=== PATIENT | female | born 1965 | race African-American/Black ===

== ENCOUNTER 2017-06-19 18:43 | Emergency (ER) | payer MEDICAID, OTHER ==
[~2017-06-19] VITALS: Ht 162.6 cm; Wt 92.0 kg
[2017-06-19] MEDS ORDERED: KETOROLAC 60MG/2ML VIAL IM STA (22:36)
[2017-06-19] MEDS ORDERED: METOCLOPRAMIDE HCL 10MG/2ML VIAL IV ONE (23:45)
[2017-06-19] MEDS ORDERED: DIPHENHYDRAMINE 50MG/ML VIAL IV ONE (23:45)
[2017-06-20 00:03] LABS: BASOPHILS % 0.5 % (0.0-2.0); EOSINOPHILS % 0.4 % (0.0-5.0); HEMOGLOBIN. 13.7 g/dL (12.0-16.0); MEAN CORPUSCULAR HEMOGLOBIN 23.7 pg (28.0-32.0); MEAN CORPUSCULAR VOLUME 72.7 fL (81.0-99.0); MEAN PLATELET VOLUME 9.8 fl (7.4-10.4); MONOCYTES % 10.7 % (2.0-8.0); NEUTROPHILS % 60.4 % (40.0-76.0); PLATELET 212 x1000/uL (130-400); RED BLOOD CELL COUNT 5.77 mill/uL (4.2-5.4); RED CELL DISTRIBUTION WIDTH 17.3 % (11.6-14.6)
[2017-06-20] MEDS ORDERED: SODIUM CHLORIDE 0.9% 1,000 ML IV ONE (00:16)
[2017-06-20 00:36] LABS: CHLORIDE 100 mEq/L (98-107)
[2017-06-20 00:51] LABS: CARBON DIOXIDE 29 mEq/L (21-32)
[2017-06-20] MEDS ORDERED: TRAMADOL 50MG TABLET PO ONE (01:00)
[2017-06-20 01:13] LABS: CLARITY URINE CLEAR (CLEAR); COLOR URINE YELLOW (YELLOW); KETONES URINE TRACE (NEGATIVE); LEUKOCYTE ESTERASE URINE NEGATIVE (NEGATIVE); NITRITE URINE NEGATIVE (NEGATIVE); OCCULT BLOOD URINE 2+ (NEGATIVE); PROTEIN URINE 2+ (NEGATIVE); SPECIFIC GRAVITY URINE 1.023 (1.005-1.030)
[2017-06-20 01:54] VITALS: BP 121/80
== END 2017-06-20 02:44 | disposition home or self-care (01) ==
LOC: ER 18:46
DX: R51 Headache (principal); Z90.710 Acquired absence of both cervix and uterus
CPT/HCPCS: 36415; 70450; 80053; 81001; 85025; 96361; 96372; 96374; 96375; 99285; J1200; J1885; J2765; J7030; Z7610

== ENCOUNTER 2017-07-29 23:32 | Inpatient (IN) | payer MEDICAID ==
[~2017-07-29] VITALS: Ht 165.1 cm; Wt 71.2 kg
[2017-07-30] VITALS: BP 123/81
[2017-07-30] MEDS ORDERED: SODIUM CHLORIDE 0.9% 1,000 ML IV ONE ×2 (00:09→02:20)
[2017-07-30] MEDS ORDERED: LORAZEPAM 2MG/ML CPJ IV ONE (00:15)
[2017-07-30] MEDS ORDERED: LEVETIRACETAM 500MG PREMIX 100 ML IV SCH (00:15)
[2017-07-30 01:20] LABS: BASOPHILS % 0.5 % (0.0-2.0); EOSINOPHILS % 0.5 % (0.0-5.0); HEMATOCRIT. 32.2 % (36.0-48.0); HEMOGLOBIN. 10.2 g/dL (12.0-16.0); LYMPHOCYTES % 13.4 % (20.0-50.0); MEAN CORPUSCULAR HEMOGLOBIN 24.5 pg (28.0-32.0); MEAN CORPUSCULAR VOLUME 77.1 fL (81.0-99.0); MEAN PLATELET VOLUME 9.2 fl (7.4-10.4); MONOCYTES % 6.7 % (2.0-8.0); NEUTROPHILS % 78.9 % (40.0-76.0); PLATELET 389 x1000/uL (130-400); RED BLOOD CELL COUNT 4.17 mill/uL (4.2-5.4); RED CELL DISTRIBUTION WIDTH 20.2 % (11.6-14.6)
[2017-07-30 01:30] LABS: AMMONIA < 25 uMol/L (<32)
[2017-07-30 01:36] LABS: CHLORIDE 106 mEq/L (98-107); CREATINE KINASE 43 IU/L (26-192); ETHANOL BLOOD < 10 mg/dL; TROPONIN I < 0.02 ng/mL (0.00-0.04)
[2017-07-30 01:38] LABS: INR 1.3; PROTHROMBIN TIME 13.4 sec (9.4-11.6)
[2017-07-30 02:22] LABS: CARBAMAZEPINE < 0.5 ug/mL (4-12); PHENOBARBITAL < 2.1 ug/mL (15.0-40.0); VALPROIC ACID < 3.0 ug/mL (50-100)
[2017-07-30 02:48] LABS: CLARITY URINE CLOUDY (CLEAR); COLOR URINE YELLOW (YELLOW); KETONES URINE NEGATIVE (NEGATIVE); LEUKOCYTE ESTERASE URINE NEGATIVE (NEGATIVE); NITRITE URINE NEGATIVE (NEGATIVE); OCCULT BLOOD URINE 2+ (NEGATIVE); PROTEIN URINE 1+ (NEGATIVE); SPECIFIC GRAVITY URINE 1.017 (1.005-1.030); UROBILINOGEN URINE 0.2 E.U./dL (0.2-1.0)
[2017-07-30 03:03] LABS: *AMPHETAMINES SCREEN URINE NEGATIVE (NEGATIVE); *BARBITURATES SCREEN URINE NEGATIVE (NEGATIVE); *BENZODIAZEPINES SCREEN URINE PRESUMTIVE POSITIVE (NEGATIVE); *COCAINE SCREEN URINE NEGATIVE (NEGATIVE); CANNABINOID URINE SCREEN NEGATIVE (NEGATIVE); METHADONE URINE SCREEN NEGATIVE (NEGATIVE); OPIATES URINE SCREEN NEGATIVE (NEGATIVE); PHENCYCLIDINE URINE SCREEN NEGATIVE (NEGATIVE)
[2017-07-30] MEDS ORDERED: ACETAMINOPHEN 325MG TABLET PO SCH (05:13)
[2017-07-30] MEDS ORDERED: SODIUM CHLORIDE 0.9% 1000ML BAG (SEPSIS BOLUS) IV ONE ×2 (05:15→06:00)
[2017-07-30] MEDS ORDERED: VANCOMYCIN 1 G PREMIX 200 ML IV SCH (06:00)
[2017-07-30] MEDS ORDERED: CEFTRIAXONE 1 G PREMIX 50 ML IV SCH (06:00)
[2017-07-30] MEDS ORDERED: ACETAMINOPHEN 650MG/20.3ML UDC GT PRN (07:30)
[2017-07-30] MEDS ORDERED: MAGNESIUM/ALUMINUM HYDROXIDE/SIMETHICONE 30ML UDC PO PRN (07:30)
[2017-07-30] MEDS ORDERED: HYDROCODONE/ACETAMINOPHEN 5/325MG TABLET PO PRN (07:30)
[2017-07-30] MEDS ORDERED: ENOXAPARIN 40MG/0.4ML SYR SUBCUT SCH (07:30)
[2017-07-30] MEDS ORDERED: DIPHENHYDRAMINE 50MG/ML VIAL IV PRN (07:30)
[2017-07-30] MEDS ORDERED: CLONIDINE 0.1MG TABLET PO PRN (07:30)
[2017-07-30] MEDS ORDERED: DOCUSATE SODIUM 100MG CAPSULE PO PRN (07:30)
[2017-07-30] MEDS ORDERED: GUAIFENESIN 200MG/10ML SUGAR FREE UDC PO PRN (07:30)
[2017-07-30] MEDS ORDERED: ACETAMINOPHEN 325MG TABLET PO PRN (07:30)
[2017-07-30] MEDS ORDERED: IPRATROPIUM/ALBUTEROL 0.5-3(2.5)MG/3ML NEB INH PRN (07:30)
[2017-07-30] MEDS ORDERED: DEXTROSE 50% WATER 50ML SYRINGE IV PRN (07:30)
[2017-07-30] MEDS ORDERED: ACETAMINOPHEN 650MG SUPP PR PRN (07:30)
[2017-07-30] MEDS ORDERED: ONDANSETRON HCL 4MG/2ML VIAL IV PRN (07:30)
[2017-07-30] MEDS: BLOOD SUGAR DIAGNOSTIC STRIP TEST SCH ×4 (09:05→21:00)
[2017-07-30] MEDS: INSULIN LISPRO 100 UNITS/ML SUBCUT SCH ×4 (09:07→21:00)
[2017-07-30] MEDS ORDERED: ENOXAPARIN 30MG/0.3ML SYR SUBCUT SCH (11:00)
[2017-07-30] MEDS ORDERED: APIX5TAB PO (11:27)
[2017-07-30] MEDS: LEVETIRACETAM 500MG PREMIX 100 ML IV SCH ×2 (13:22→22:06)
[2017-07-30] MEDS: APIXABAN 5 MG TABLET PO SCH ×2 (13:23→22:15)
[2017-07-30] MEDS: SODIUM CHLORIDE 0.9% INJ 3ML FLUSH IVF SCH ×2 (14:15→22:00)
[2017-07-30] MEDS: LEVOFLOXACIN 500MG PREMIX 100 ML IV SCH ×2 (21:36→22:43)
[2017-07-30] MEDS ORDERED: NA PHOS,M-B/NA PHOS,DI-BA ENEMA 118ML PR PRN (23:00)
[2017-07-31 02:02] VITALS: BP 123/81
[2017-07-31 04:00] VITALS: BP 117/73
[2017-07-31] MEDS: SODIUM CHLORIDE 0.9% INJ 3ML FLUSH IVF SCH ×3 (05:53→22:10)
[2017-07-31 06:24] LABS: BASOPHILS % 0.5 % (0.0-2.0); EOSINOPHILS % 3.1 % (0.0-5.0); HEMATOCRIT. 29.6 % (36.0-48.0); HEMOGLOBIN. 9.7 g/dL (12.0-16.0); LYMPHOCYTES % 27.7 % (20.0-50.0); MEAN CORPUSCULAR VOLUME 76.4 fL (81.0-99.0); MEAN PLATELET VOLUME 9.1 fl (7.4-10.4); NEUTROPHILS % 61.7 % (40.0-76.0); PLATELET 354 x1000/uL (130-400); RED BLOOD CELL COUNT 3.88 mill/uL (4.2-5.4); RED CELL DISTRIBUTION WIDTH 20.5 % (11.6-14.6)
[2017-07-31] MEDS: BLOOD SUGAR DIAGNOSTIC STRIP TEST SCH ×4 (06:50→21:26)
[2017-07-31] MEDS: INSULIN LISPRO 100 UNITS/ML SUBCUT SCH ×4 (07:18→21:00)
[2017-07-31 08:00] VITALS: BP 133/87
[2017-07-31] MEDS: APIXABAN 5 MG TABLET PO SCH ×2 (08:40→22:10)
[2017-07-31] MEDS: LEVETIRACETAM 500MG PREMIX 100 ML IV SCH ×2 (10:52→23:39)
[2017-07-31] MEDS ORDERED: LURA40TA PO (11:24)
[2017-07-31] MEDS ORDERED: SIMV10TA2 PO (11:27)
[2017-07-31] MEDS ORDERED: SERT50TA PO (11:29)
[2017-07-31] MEDS: SERTRALINE HCL 50MG TABLET PO SCH (11:44)
[2017-07-31 12:00] VITALS: BP 130/76
[2017-07-31] MEDS ORDERED: CEFTRIAXONE 1,000 MG in DEXTROSE 5% WATER 50 ML IV SCH (13:00)
[2017-07-31 16:00] VITALS: BP 129/82
[2017-07-31] MEDS: LATUDA 60 MG PO SCH (17:16)
[2017-07-31 20:00] VITALS: BP 134/73
[2017-07-31] MEDS ORDERED: ATORVASTATIN CALCIUM 10MG TABLET PO SCH (21:00)
[2017-08-01] VITALS: BP 130/75
[2017-08-01 04:00] VITALS: BP 118/64
[2017-08-01] MEDS: BLOOD SUGAR DIAGNOSTIC STRIP TEST SCH ×3 (05:31→17:47)
[2017-08-01] MEDS: SODIUM CHLORIDE 0.9% INJ 3ML FLUSH IVF SCH (05:31)
[2017-08-01 08:00] VITALS: BP 131/77
[2017-08-01] MEDS: INSULIN LISPRO 100 UNITS/ML SUBCUT SCH ×3 (08:10→17:47)
[2017-08-01] MEDS: APIXABAN 5 MG TABLET PO SCH (09:08)
[2017-08-01] MEDS: SERTRALINE HCL 50MG TABLET PO SCH (09:08)
[2017-08-01] MEDS ORDERED: LEVETIRACETAM 500MG PREMIX 100 ML IV SCH (11:00)
[2017-08-01] MEDS ORDERED: KEPP500 PO (11:58)
[2017-08-01 12:00] VITALS: BP 136/88
[2017-08-01 16:00] VITALS: BP 123/75
[2017-08-01 16:27] VITALS: BP 136/88
[2017-08-01] MEDS: LATUDA 60 MG PO SCH (17:52)
== END 2017-08-01 18:10 | disposition home health service (06) | DRG 45 ==
LOC: ER 23:36 → 7WST 07-30 05:27 → EDBEDREQ 07-30 05:37 → EDBEDREQTM 07-30 05:37 → EDBEDREQSVC 07-30 08:51 → ENRESERV 07-30 22:29 → 7WST 07-31 06:08
PROVIDERS: ADMIT Family Medicine; ATTEND Family Medicine
DX: I63.9 Cerebral infarction, unspecified (principal); E44.0 Moderate protein-calorie malnutrition; R13.10 Dysphagia, unspecified; F25.9 Schizoaffective disorder, unspecified; G40.89 Other seizures; E11.9 Type 2 diabetes mellitus without complications; I10 Essential (primary) hypertension; E66.9 Obesity, unspecified; Z79.01 Long term (current) use of anticoagulants; Z86.61 Personal history of infections of the central nervous system; Z86.711 Personal history of pulmonary embolism; Z86.718 Personal history of other venous thrombosis and embolism; Z90.710 Acquired absence of both cervix and uterus; Z79.899 Other long term (current) drug therapy; Z88.8 Allergy status to other drugs, medicaments and biological substances; Z98.891 History of uterine scar from previous surgery; Z68.26 Body mass index [BMI] 26.0-26.9, adult
CPT/HCPCS: 36415; 70450; 70551; 71045; 80053; 80061; 80156; 80165; 80184; 80185; 80305; 81001; 81003; 82140; 82550; 82962; 83036; 83605; 83690; 83880; 84443; 84484; 85025; 85379; 85610; 87040; 93005; 93880; 93970; 96365; 97116; 97162; 99291; G0482; J0696; J1953; J1956; J2060; J3370; J7030; J7050; J7060

== ENCOUNTER 2017-08-02 04:13 | Emergency (ER) | payer MEDICAID ==
[~2017-08-02] VITALS: Ht 170.2 cm; Wt 89.0 kg
[~2017-08-02 04:13] MED LIST: APIX5TAB PO; KEPP500 PO; LURA40TA PO; SERT50TA PO; SIMV10TA2 PO
[2017-08-02 05:31] LABS: CLARITY URINE CLOUDY (CLEAR); COLOR URINE DARK YELLOW (YELLOW); KETONES URINE NEGATIVE (NEGATIVE); LEUKOCYTE ESTERASE URINE NEGATIVE (NEGATIVE); NITRITE URINE NEGATIVE (NEGATIVE); OCCULT BLOOD URINE 3+ (NEGATIVE); PROTEIN URINE 2+ (NEGATIVE); SPECIFIC GRAVITY URINE 1.021 (1.005-1.030); UROBILINOGEN URINE 0.2 E.U./dL (0.2-1.0)
[2017-08-02 05:56] LABS: *AMPHETAMINES SCREEN URINE NEGATIVE (NEGATIVE); *BARBITURATES SCREEN URINE NEGATIVE (NEGATIVE); *BENZODIAZEPINES SCREEN URINE NEGATIVE (NEGATIVE); *COCAINE SCREEN URINE NEGATIVE (NEGATIVE); CANNABINOID URINE SCREEN NEGATIVE (NEGATIVE); METHADONE URINE SCREEN NEGATIVE (NEGATIVE); OPIATES URINE SCREEN NEGATIVE (NEGATIVE); PHENCYCLIDINE URINE SCREEN NEGATIVE (NEGATIVE)
[2017-08-02 06:29] LABS: BASOPHILS % 0.6 % (0.0-2.0); EOSINOPHILS % 1.5 % (0.0-5.0); HEMATOCRIT. 35.3 % (36.0-48.0); HEMOGLOBIN. 11.2 g/dL (12.0-16.0); MEAN CORPUSCULAR HEMOGLOBIN 24.3 pg (28.0-32.0); MEAN CORPUSCULAR VOLUME 76.4 fL (81.0-99.0); MONOCYTES % 9.9 % (2.0-8.0); PLATELET 360 x1000/uL (130-400); RED BLOOD CELL COUNT 4.62 mill/uL (4.2-5.4); RED CELL DISTRIBUTION WIDTH 19.5 % (11.6-14.6)
[2017-08-02 06:37] LABS: CHLORIDE 106 mEq/L (98-107)
[2017-08-02] MEDS ORDERED: LORAZEPAM 2MG/ML CPJ IV ONE (06:45)
[2017-08-02] MEDS ORDERED: SODIUM CHLORIDE 0.9% 1,000 ML IV ONE (06:45)
[2017-08-02 06:46] LABS: CARBON DIOXIDE 25 mEq/L (21-32)
[2017-08-02] MEDS ORDERED: ONDANSETRON HCL 4MG/2ML VIAL IV NR (08:00)
[2017-08-02] MEDS ORDERED: TAMSULOSIN HCL 0.4MG SR CAPSULE PO NR (08:00)
[2017-08-02] MEDS ORDERED: KETOROLAC 30MG/ML VIAL IV ONE (08:00)
[2017-08-02] MEDS ORDERED: MORPHINE SULFATE 2 MG/ML CPJ (NOT FOR IM USE) IV ONE (08:00)
[2017-08-02] MEDS ORDERED: MORPHINE SULFATE 4 MG/ML CPJ (NOT FOR IM USE) IV ONE (08:13)
[2017-08-02] MEDS ORDERED: DIPHENHYDRAMINE 50MG/ML VIAL IV ONE (08:45)
[2017-08-02 14:45] VITALS: BP 125/70
== END 2017-08-02 14:50 | disposition home or self-care (01) ==
LOC: ER 04:13
DX: N23 Unspecified renal colic (principal); N20.2 Calculus of kidney with calculus of ureter; F31.9 Bipolar disorder, unspecified; E11.9 Type 2 diabetes mellitus without complications; Z90.710 Acquired absence of both cervix and uterus; Z98.890 Other specified postprocedural states; Z88.1 Allergy status to other antibiotic agents
CPT/HCPCS: 36415; 74176; 80053; 80305; 81001; 81025; 85025; 93005; 96361; 96374; 96375; 99285; J1200; J1885; J2060; J2270; J2405; J7030; Z7610

== ENCOUNTER 2020-03-01 22:14 | Inpatient (IN) | payer MEDICAID ==
[~2020-03-01] VITALS: Ht 170.2 cm; Wt 84.8 kg
[2020-03-01] MEDS ORDERED: ACETAMINOPHEN 325MG TABLET PO ONE (23:00)
[2020-03-01] MEDS ORDERED: SODIUM CHLORIDE 0.9% 500 ML IV ONE (23:07)
[2020-03-01] MEDS ORDERED: PIPERACILLIN/TAZ 3.375G PREMIX 50 ML IV NR (23:30)
[2020-03-01] MEDS ORDERED: PIPERACILLIN/TAZOBACTAM 3.375GM/50ML PREMIX IV ONE (23:30)
[2020-03-01 23:51] LABS: BASOPHILS % 0.5 % (0.0-2.0); EOSINOPHILS % 2.3 % (0.0-5.0); HEMATOCRIT. 36.5 % (36.0-48.0); LYMPHOCYTES % 41.6 % (20.0-50.0); MEAN CORPUSCULAR HEMOGLOBIN 26.2 pg (28.0-32.0); MEAN CORPUSCULAR VOLUME 79.4 fL (81.0-99.0); MEAN PLATELET VOLUME 9.5 fl (7.4-10.4); MONOCYTES % 8.5 % (2.0-8.0); NEUTROPHILS % 47.1 % (40.0-76.0); PLATELET 208 x1000/uL (130-400); RED CELL DISTRIBUTION WIDTH 13.7 % (11.6-14.6)
[2020-03-01 23:56] LABS: CHLORIDE 105 mEq/L (98-107); CLARITY URINE CLEAR (CLEAR); COLOR URINE YELLOW (YELLOW); KETONES URINE NEGATIVE (NEGATIVE); LEUKOCYTE ESTERASE URINE NEGATIVE (NEGATIVE); NITRITE URINE NEGATIVE (NEGATIVE); OCCULT BLOOD URINE 1+ (NEGATIVE); PROTEIN URINE NEGATIVE (NEGATIVE); SPECIFIC GRAVITY URINE 1.006 (1.005-1.030); UROBILINOGEN URINE 0.2 E.U./dL (0.2-1.0)
[2020-03-01 23:58] LABS: PARTIAL THROMBOPLASTIN TIME 26.8 sec (23.4-31.0); PROTHROMBIN TIME 10.8 sec (9.6-11.0)
[2020-03-02] MEDS ORDERED: ASPIRIN 81MG TABLET PO ONE (00:15)
[2020-03-02] MEDS ORDERED: MORPHINE SULFATE 4 MG/ML CPJ (NOT FOR IM USE) IV STA (00:21)
[2020-03-02] MEDS ORDERED: ONDANSETRON HCL 4MG/2ML INJ IV STA (00:21)
[2020-03-02] MEDS ORDERED: POTASSIUM CHLORIDE 20MEQ TABLET SR PO ONE (00:45)
[2020-03-02] MEDS ORDERED: ONDANSETRON HCL 4MG/2ML INJ IV PRN (09:15)
[2020-03-02 09:30] VITALS: BP 146/84
[2020-03-02] MEDS ORDERED: ACETAMINOPHEN 325MG TABLET PO PRN (09:30)
[2020-03-02 12:24] VITALS: BP_SYST 184
[2020-03-02] MEDS ORDERED: OMEG-119 MT (12:44)
[2020-03-02] MEDS ORDERED: DULO60CA44 MT (12:44)
[2020-03-02] MEDS ORDERED: ASPI-1497 MT (12:44)
[2020-03-02] MEDS ORDERED: HYDR25TA MT (12:44)
[2020-03-02] MEDS ORDERED: ATOR20TA MT (12:44)
[2020-03-02] MEDS ORDERED: BRIV50TA MT (12:44)
[2020-03-02] MEDS ORDERED: FAMO20TA8 MT (12:44)
[2020-03-02] MEDS ORDERED: ZOLP5TAB8 MT (12:44)
[2020-03-02] MEDS ORDERED: LURA120T MT (12:44)
[2020-03-02 14:00] VITALS: BP 146/89
[2020-03-02 14:02] VITALS: BP_SYST 130; BP_SYST 133; BP_DIAS 72; BP_DIAS 83
[2020-03-02] MEDS ORDERED: DEXTROSE 50% WATER 50ML SYRINGE IV PRN (16:00)
[2020-03-02] MEDS ORDERED: POTASSIUM CHLORIDE 20MEQ TABLET SR PO NR (16:30)
[2020-03-02] MEDS: ENOXAPARIN 40MG/0.4ML SYR SUBCUT SCH (17:19)
[2020-03-02] MEDS: BLOOD SUGAR DIAGNOSTIC STRIP TEST SCH ×2 (17:42→20:59)
[2020-03-02] MEDS: INSULIN LISPRO 100 UNITS/ML SUBCUT SCH ×2 (17:54→21:00)
[2020-03-02 20:00] VITALS: BP_SYST 125; BP_SYST 130; BP_SYST 145; BP_DIAS 78; BP_DIAS 86; BP_DIAS 93
[2020-03-02] MEDS: ATORVASTATIN CALCIUM 20MG TABLET PO SCH (20:58)
[2020-03-02] MEDS: FAMOTIDINE 20MG TABLET PO SCH (20:58)
[2020-03-02] MEDS: BRIVIACT 50 MG PO SCH (20:59)
[2020-03-02] MEDS: [UNRECOGNIZED DRUG - REMARK] PO SCH (20:59)
[2020-03-02] MEDS: ZOLPIDEM TARTRATE 5MG TABLET PO PRN (23:27)
[2020-03-03] VITALS: BP 133/82
[2020-03-03 04:00] VITALS: BP 139/79
[2020-03-03] MEDS: BLOOD SUGAR DIAGNOSTIC STRIP TEST SCH ×4 (05:33→20:10)
[2020-03-03] MEDS: INSULIN LISPRO 100 UNITS/ML SUBCUT SCH ×4 (06:38→20:10)
[2020-03-03 08:00] VITALS: BP 122/93
[2020-03-03] MEDS: AMLODIPINE 5MG TABLET PO SCH (08:40)
[2020-03-03] MEDS: BRIVIACT 50 MG PO SCH ×2 (08:40→20:30)
[2020-03-03] MEDS: ASPIRIN 81MG TABLET PO SCH (08:40)
[2020-03-03] MEDS: DULOXETINE HCL 60MG DR CAPSULE PO SCH (08:40)
[2020-03-03 12:00] VITALS: BP 139/70
[2020-03-03 16:00] VITALS: BP 150/93
[2020-03-03 16:17] LABS: BASOPHILS % 0.4 % (0.0-2.0); EOSINOPHILS % 1.7 % (0.0-5.0); HEMATOCRIT. 38.2 % (36.0-48.0); HEMOGLOBIN. 12.4 g/dL (12.0-16.0); LYMPHOCYTES % 38.3 % (20.0-50.0); MEAN CORPUSCULAR VOLUME 79.7 fL (81.0-99.0); MEAN PLATELET VOLUME 9.5 fl (7.4-10.4); MONOCYTES % 8.4 % (2.0-8.0); NEUTROPHILS % 51.2 % (40.0-76.0); PLATELET 208 x1000/uL (130-400); RED BLOOD CELL COUNT 4.79 mill/uL (4.2-5.4); RED CELL DISTRIBUTION WIDTH 13.5 % (11.6-14.6)
[2020-03-03 16:25] LABS: CHLORIDE 103 mEq/L (98-107)
[2020-03-03] MEDS: ENOXAPARIN 40MG/0.4ML SYR SUBCUT SCH (17:09)
[2020-03-03 20:00] VITALS: BP 130/75
[2020-03-03 20:11] LABS: *BARBITURATES SCREEN URINE NEGATIVE (NEGATIVE); *BENZODIAZEPINES SCREEN URINE NEGATIVE (NEGATIVE); *COCAINE SCREEN URINE NEGATIVE (NEGATIVE)
[2020-03-03 20:12] LABS: *AMPHETAMINES SCREEN URINE NEGATIVE (NEGATIVE); CANNABINOID URINE SCREEN NEGATIVE (NEGATIVE); METHADONE URINE SCREEN NEGATIVE (NEGATIVE); OPIATES URINE SCREEN NEGATIVE (NEGATIVE); PHENCYCLIDINE URINE SCREEN NEGATIVE (NEGATIVE)
[2020-03-03] MEDS: FAMOTIDINE 20MG TABLET PO SCH (20:30)
[2020-03-03] MEDS: [UNRECOGNIZED DRUG - REMARK] PO SCH (20:30)
[2020-03-03] MEDS: ATORVASTATIN CALCIUM 20MG TABLET PO SCH (20:30)
[2020-03-03] MEDS ORDERED: DOCUSATE SODIUM 250MG CAPSULE PO PRN (20:45)
[2020-03-03] MEDS: ZOLPIDEM TARTRATE 5MG TABLET PO PRN (20:46)
[2020-03-04] VITALS: BP 120/65
[2020-03-04 04:00] VITALS: BP_SYST 118; BP_SYST 120; BP_SYST 130; BP_DIAS 58; BP_DIAS 60; BP_DIAS 64
[2020-03-04] MEDS: BLOOD SUGAR DIAGNOSTIC STRIP TEST SCH ×2 (05:39→11:46)
[2020-03-04] MEDS: INSULIN LISPRO 100 UNITS/ML SUBCUT SCH ×2 (06:23→11:46)
[2020-03-04 08:00] VITALS: BP 125/80
[2020-03-04] MEDS: ASPIRIN 81MG TABLET PO SCH (08:25)
[2020-03-04] MEDS: DULOXETINE HCL 60MG DR CAPSULE PO SCH (08:25)
[2020-03-04] MEDS: BRIVIACT 50 MG PO SCH (08:26)
[2020-03-04] MEDS: AMLODIPINE 5MG TABLET PO SCH (08:26)
[2020-03-04 12:00] VITALS: BP 109/82
[2020-03-04 12:32] VITALS: BP 125/80
== END 2020-03-04 14:50 | disposition home or self-care (01) | DRG 48 ==
LOC: ER 22:14 → 7WST 03-02 01:00 → EDBEDREQ 03-02 01:02 → EDBEDREQDT 03-02 01:02 → EDBEDREQTM 03-02 01:02 → ENRESERV 03-02 09:16 → 7WST 03-02 10:06 → 5WST 03-02 22:48
PROVIDERS: ADMIT Internal Medicine; ATTEND Internal Medicine
DX: G90.8 Other disorders of autonomic nervous system (principal); E87.6 Hypokalemia; E11.9 Type 2 diabetes mellitus without complications; E44.1 Mild protein-calorie malnutrition; G40.909 Epilepsy, unspecified, not intractable, without status epilepticus; F31.9 Bipolar disorder, unspecified; F20.9 Schizophrenia, unspecified; I10 Essential (primary) hypertension; Z20.828 Contact with and (suspected) exposure to other viral communicable diseases; R26.89 Other abnormalities of gait and mobility; E78.5 Hyperlipidemia, unspecified; J98.11 Atelectasis; E78.00 Pure hypercholesterolemia, unspecified; Z86.73 Personal history of transient ischemic attack (TIA), and cerebral infarction without residual deficits; Z86.19 Personal history of other infectious and parasitic diseases; Z86.61 Personal history of infections of the central nervous system; Z86.711 Personal history of pulmonary embolism; Z90.710 Acquired absence of both cervix and uterus; Z98.891 History of uterine scar from previous surgery; Z88.1 Allergy status to other antibiotic agents
CPT/HCPCS: 36415; 70544; 70553; 71045; 80048; 80053; 80305; 80320; 81003; 82962; 83605; 83880; 84484; 85025; 87635; 93005; 93306; 93880; 97162; 97166; 99285; J1650; J1815; J2270; J2405; J2543; J7030; G0480

== ENCOUNTER 2020-03-13 13:31 | Emergency (ER) | payer MEDICAID ==
[~2020-03-13] VITALS: Ht 162.6 cm; Wt 84.0 kg
[~2020-03-13 13:31] MED LIST changes: +ASPI-1497 MT; +ATOR20TA MT; +BRIV50TA MT; +DULO60CA44 MT; +FAMO20TA8 MT; +HYDR25TA MT; -KEPP500 PO; +LURA120T MT; +OMEG-119 MT; -SERT50TA PO; -SIMV10TA2 PO; +ZOLP5TAB8 MT
[2020-03-13 13:41] VITALS: BP 153/90
== END 2020-03-13 17:12 | disposition home or self-care (01) ==
LOC: ER 13:31
DX: S61.256A Open bite of right little finger without damage to nail, initial encounter (principal); S61.412A Laceration without foreign body of left hand, initial encounter; Y08.89XA Assault by other specified means, initial encounter; Y93.89 Activity, other specified; Y92.89 Other specified places as the place of occurrence of the external cause; Y99.8 Other external cause status; Z88.8 Allergy status to other drugs, medicaments and biological substances; Z88.1 Allergy status to other antibiotic agents; F41.9 Anxiety disorder, unspecified
CPT/HCPCS: 99283

== ENCOUNTER 2020-06-30 14:45 | Emergency (ER) | payer MEDICAID ==
[~2020-06-30] VITALS: Ht 160 cm; Wt 73.0 kg
[2020-06-30] MEDS ORDERED: ACETAMINOPHEN 325MG TABLET PO ONE (17:15)
[2020-06-30] MEDS ORDERED: LIDOCAINE HCL 1% 20ML VIAL (Pyxis) INJ INFIL ONE (17:15)
[2020-06-30 18:19] VITALS: BP 155/107
== END 2020-06-30 18:20 | disposition home or self-care (01) ==
LOC: ER 14:45
DX: L02.412 Cutaneous abscess of left axilla (principal); I10 Essential (primary) hypertension; E11.9 Type 2 diabetes mellitus without complications; E78.00 Pure hypercholesterolemia, unspecified; Z88.1 Allergy status to other antibiotic agents; Z88.2 Allergy status to sulfonamides; Z91.048 Other nonmedicinal substance allergy status; Z79.899 Other long term (current) drug therapy; Z79.82 Long term (current) use of aspirin; Z98.890 Other specified postprocedural states; Z86.59 Personal history of other mental and behavioral disorders; Z90.710 Acquired absence of both cervix and uterus
CPT/HCPCS: 10060; 82962; 99282; J3490

== ENCOUNTER 2020-07-04 11:23 | Emergency (ER) | payer MEDICAID ==
[~2020-07-04] VITALS: Ht 160 cm; Wt 73.0 kg
[2020-07-04 11:25] VITALS: BP 141/97
== END 2020-07-04 12:52 | disposition home or self-care (01) ==
LOC: ER 11:23
DX: Z48.00 Encounter for change or removal of nonsurgical wound dressing (principal)
CPT/HCPCS: 99281

== ENCOUNTER 2020-12-11 08:12 | Emergency (ER) | payer MEDICAID ==
[~2020-12-11] VITALS: Ht 162.6 cm; Wt 82.0 kg
[2020-12-11 10:16] LABS: CHLORIDE 103 mEq/L (98-107)
[2020-12-11 11:30] VITALS: BP 163/78
== END 2020-12-11 11:30 | disposition home or self-care (01) ==
LOC: ER 08:12
DX: M79.89 Other specified soft tissue disorders (principal); E78.00 Pure hypercholesterolemia, unspecified; I10 Essential (primary) hypertension; Z88.1 Allergy status to other antibiotic agents; Z88.2 Allergy status to sulfonamides; Z79.899 Other long term (current) drug therapy; Z86.59 Personal history of other mental and behavioral disorders; Z98.890 Other specified postprocedural states; Z86.73 Personal history of transient ischemic attack (TIA), and cerebral infarction without residual deficits; Z90.710 Acquired absence of both cervix and uterus
CPT/HCPCS: 36415; 80048; 83880; 99283

== ENCOUNTER 2020-12-21 14:50 | Emergency (ER) | payer MEDICAID ==
[~2020-12-21] VITALS: Ht 162.6 cm; Wt 85.0 kg
[2020-12-21 17:44] LABS: CLARITY URINE CLEAR (CLEAR); COLOR URINE YELLOW (YELLOW); KETONES URINE NEGATIVE (NEGATIVE); LEUKOCYTE ESTERASE URINE NEGATIVE (NEGATIVE); NITRITE URINE NEGATIVE (NEGATIVE); OCCULT BLOOD URINE NEGATIVE (NEGATIVE); PROTEIN URINE NEGATIVE (NEGATIVE); SPECIFIC GRAVITY URINE 1.014 (1.005-1.030); UROBILINOGEN URINE 0.2 E.U./dL (0.2-1.0)
[2020-12-21 19:08] LABS: BASOPHILS % 0.8 % (0.0-2.0); EOSINOPHILS % 2.5 % (0.0-5.0); HEMATOCRIT. 33.1 % (36.0-48.0); HEMOGLOBIN. 11.1 g/dL (12.0-16.0); LYMPHOCYTES % 36.9 % (20.0-50.0); MEAN CORPUSCULAR HEMOGLOBIN 26.9 pg (28.0-32.0); MEAN CORPUSCULAR VOLUME 79.9 fL (81.0-99.0); MEAN PLATELET VOLUME 9.5 fl (7.4-10.4); MONOCYTES % 11.2 % (2.0-8.0); NEUTROPHILS % 48.6 % (40.0-76.0); PLATELET 210 x1000/uL (130-400); RED BLOOD CELL COUNT 4.14 mill/uL (4.2-5.4); RED CELL DISTRIBUTION WIDTH 18.2 % (11.6-14.6)
[2020-12-21 19:11] LABS: CHLORIDE 105 mEq/L (98-107)
[2020-12-21] MEDS ORDERED: POTASSIUM CHLORIDE 20MEQ TABLET SR PO ONE (19:30)
[2020-12-21 21:55] VITALS: BP 136/87
== END 2020-12-21 22:02 | disposition home or self-care (01) ==
LOC: ER 14:50
DX: R07.89 Other chest pain (principal); E87.6 Hypokalemia; F31.9 Bipolar disorder, unspecified; E11.9 Type 2 diabetes mellitus without complications; E78.00 Pure hypercholesterolemia, unspecified; I10 Essential (primary) hypertension; G40.909 Epilepsy, unspecified, not intractable, without status epilepticus; Z86.73 Personal history of transient ischemic attack (TIA), and cerebral infarction without residual deficits; F20.9 Schizophrenia, unspecified; Z90.710 Acquired absence of both cervix and uterus; Z88.3 Allergy status to other anti-infective agents; Z88.8 Allergy status to other drugs, medicaments and biological substances
CPT/HCPCS: 36415; 71045; 80053; 81003; 83880; 84484; 85025; 93005; 93970; 99285

== ENCOUNTER 2020-12-26 12:01 | Emergency (ER) | payer MEDICAID ==
[~2020-12-26] VITALS: Ht 165.1 cm; Wt 79.0 kg
[2020-12-26] MEDS ORDERED: TRAMADOL 50MG TABLET PO ONE (12:45)
[2020-12-26] MEDS ORDERED: LORAZEPAM 1MG TABLET PO ONE (12:45)
[2020-12-26] MEDS ORDERED: METH-774 MT (15:33)
[2020-12-26] MEDS ORDERED: TRAM50TA3 MT (15:33)
[2020-12-26 15:35] VITALS: BP 170/88
== END 2020-12-26 15:37 | disposition home or self-care (01) ==
LOC: ER 12:01
DX: M43.6 Torticollis (principal); F31.9 Bipolar disorder, unspecified; E11.9 Type 2 diabetes mellitus without complications; E78.00 Pure hypercholesterolemia, unspecified; I10 Essential (primary) hypertension; R56.9 Unspecified convulsions; F20.9 Schizophrenia, unspecified; Z88.3 Allergy status to other anti-infective agents; Z88.6 Allergy status to analgesic agent; Z79.82 Long term (current) use of aspirin; Z86.73 Personal history of transient ischemic attack (TIA), and cerebral infarction without residual deficits; Z90.710 Acquired absence of both cervix and uterus
CPT/HCPCS: 99283

== ENCOUNTER 2021-02-03 22:40 | Inpatient (IN) | payer MEDICAID, OTHER ==
[~2021-02-03] VITALS: Ht 167.6 cm; Wt 90.2 kg
[2021-02-03 22:40] VITALS: BP 132/86
[~2021-02-03 22:40] MED LIST changes: +ALOG25TA2 PO; +ASCO500C15 PO; +ATOR20TA65 PO; +B12/1TAB PO; +CHLO25TA2 PO; +CRAN500T2 MT; +DOCU50LI25 PO; +DULO60CA64 PO; +FAMO20TA8 PO; +FISH1CAP63 PO; +LUTE40CA PO; +METH-612 MT; +TEMA15CA PO; +TRAM50TA3 MT
[2021-02-03] MEDS ORDERED: ACETAMINOPHEN 325MG TABLET PO PRN ×2 (23:45)
[2021-02-03] MEDS ORDERED: DOCUSATE SODIUM 100MG CAPSULE PO PRN (23:45)
[2021-02-03] MEDS ORDERED: DEXTROSE 50% WATER 50ML SYRINGE IV PRN ×2 (23:45)
[2021-02-03] MEDS ORDERED: CLONIDINE 0.1MG TABLET PO PRN (23:45)
[2021-02-03] MEDS ORDERED: HYDROCODONE/ACETAMINOPHEN 5/325MG TABLET PO PRN (23:45)
[2021-02-03] MEDS ORDERED: ONDANSETRON HCL 4MG/2ML INJ IV PRN (23:45)
[2021-02-03] MEDS ORDERED: LORAZEPAM 0.5MG TABLET PO PRN (23:45)
[2021-02-03] MEDS ORDERED: IPRATROPIUM/ALBUTEROL 0.5-3(2.5)MG/3ML NEB HHN PRN (23:45)
[2021-02-03] MEDS ORDERED: NALOXONE HCL 0.4 MG/ML 1ML VIAL IV PRN (23:45)
[2021-02-03] MEDS ORDERED: TEMAZEPAM 15MG CAPSULE PO PRN (23:45)
[2021-02-04] MEDS ORDERED: NALOXONE HCL 0.4MG/ML VIAL IV PRN (01:00)
[2021-02-04] MEDS ORDERED: *PATIENT'S OWN MEDICATION STORAGE XX SCH (02:45)
[2021-02-04 06:30] LABS: BASOPHILS % 0.7 % (0.0-2.0); EOSINOPHILS % 2.4 % (0.0-5.0); HEMATOCRIT. 41.1 % (36.0-48.0); HEMOGLOBIN. 13.3 g/dL (12.0-16.0); LYMPHOCYTES % 39.1 % (20.0-50.0); MEAN CORPUSCULAR HEMOGLOBIN 25.9 pg (28.0-32.0); MEAN CORPUSCULAR VOLUME 80.1 fL (81.0-99.0); MEAN PLATELET VOLUME 9.7 fl (7.4-10.4); MONOCYTES % 9.6 % (2.0-8.0); NEUTROPHILS % 48.2 % (40.0-76.0); PLATELET 193 x1000/uL (130-400); RED BLOOD CELL COUNT 5.13 mill/uL (4.2-5.4); RED CELL DISTRIBUTION WIDTH 14.5 % (11.6-14.6)
[2021-02-04] MEDS: BLOOD SUGAR DIAGNOSTIC STRIP TEST SCH ×4 (06:30→21:43)
[2021-02-04 06:44] LABS: CHLORIDE 106 mEq/L (98-107)
[2021-02-04] MEDS: INSULIN LISPRO 100 UNITS/ML SUBCUT SCH ×5 (06:47→21:56)
[2021-02-04 08:00] VITALS: BP 142/84
[2021-02-04] MEDS: FAMOTIDINE 20MG TABLET PO SCH ×2 (09:29→21:42)
[2021-02-04] MEDS: CLOPIDOGREL 75MG TABLET PO SCH (09:29)
[2021-02-04] MEDS: DULOXETINE HCL 60MG DR CAPSULE PO SCH (09:29)
[2021-02-04] MEDS: ASPIRIN 81MG EC TABLET PO SCH (09:29)
[2021-02-04] MEDS: ENOXAPARIN 30MG/0.3ML SYR SUBCUT SCH ×2 (09:30→21:43)
[2021-02-04] MEDS: BRIVIACT (BRIVARACETAM) 50MG TABLET PO SCH ×2 (09:32→16:48)
[2021-02-04] MEDS: LATUDA (LURASIDONE) 80MG TABLET PO SCH (16:48)
[2021-02-04 20:00] VITALS: BP 126/74
[2021-02-04] MEDS: ATORVASTATIN CALCIUM 40MG TABLET PO SCH (21:42)
[2021-02-04] MEDS: INSULIN GLARGINE UD 100 UNITS/ML SYR SUBCUT SCH (21:56)
[2021-02-05 00:30] VITALS: BP 126/74
[2021-02-05] MEDS: BLOOD SUGAR DIAGNOSTIC STRIP TEST SCH ×4 (06:06→21:13)
[2021-02-05] MEDS: INSULIN LISPRO 100 UNITS/ML SUBCUT SCH ×4 (06:39→21:43)
[2021-02-05 08:00] VITALS: BP 114/71
[2021-02-05 08:35] LABS: BASOPHILS % 0.4 % (0.0-2.0); EOSINOPHILS % 1.9 % (0.0-5.0); HEMATOCRIT. 40.2 % (36.0-48.0); HEMOGLOBIN. 13.4 g/dL (12.0-16.0); LYMPHOCYTES % 38.6 % (20.0-50.0); MEAN CORPUSCULAR HEMOGLOBIN 26.2 pg (28.0-32.0); MEAN CORPUSCULAR VOLUME 78.8 fL (81.0-99.0); MEAN PLATELET VOLUME 10.4 fl (7.4-10.4); MONOCYTES % 6.3 % (2.0-8.0); NEUTROPHILS % 52.8 % (40.0-76.0); PLATELET 240 x1000/uL (130-400); RED CELL DISTRIBUTION WIDTH 14.7 % (11.6-14.6)
[2021-02-05 08:44] LABS: CHLORIDE 104 mEq/L (98-107)
[2021-02-05 08:55] LABS: TOTAL IRON BINDING CAPACITY 316 ug/dL (250-450)
[2021-02-05] MEDS: ENOXAPARIN 30MG/0.3ML SYR SUBCUT SCH ×2 (09:35→21:13)
[2021-02-05] MEDS: DULOXETINE HCL 60MG DR CAPSULE PO SCH (09:36)
[2021-02-05] MEDS: FAMOTIDINE 20MG TABLET PO SCH ×2 (09:36→21:13)
[2021-02-05] MEDS: CLOPIDOGREL 75MG TABLET PO SCH (09:36)
[2021-02-05] MEDS: ASPIRIN 81MG EC TABLET PO SCH (09:36)
[2021-02-05] MEDS: BRIVIACT (BRIVARACETAM) 50MG TABLET PO SCH ×2 (09:43→17:29)
[2021-02-05] MEDS: INSULIN GLARGINE UD 100 UNITS/ML SYR SUBCUT SCH ×2 (11:21→21:44)
[2021-02-05] MEDS: FERROUS SULFATE 325MG TABLET PO SCH (17:28)
[2021-02-05] MEDS: LATUDA (LURASIDONE) 80MG TABLET PO SCH (17:29)
[2021-02-05 20:00] VITALS: BP 126/79
[2021-02-05] MEDS: ATORVASTATIN CALCIUM 40MG TABLET PO SCH (21:13)
[2021-02-06] MEDS: BLOOD SUGAR DIAGNOSTIC STRIP TEST SCH ×4 (06:10→20:59)
[2021-02-06] MEDS: INSULIN LISPRO 100 UNITS/ML SUBCUT SCH ×4 (06:12→21:35)
[2021-02-06 07:46] VITALS: BP 142/82
[2021-02-06] MEDS: DULOXETINE HCL 60MG DR CAPSULE PO SCH (09:17)
[2021-02-06] MEDS: FERROUS SULFATE 325MG TABLET PO SCH ×3 (09:17→17:23)
[2021-02-06] MEDS: ASCORBIC ACID 500 MG TABLET PO SCH (09:17)
[2021-02-06] MEDS: BRIVIACT (BRIVARACETAM) 50MG TABLET PO SCH ×2 (09:17→17:23)
[2021-02-06] MEDS: ENOXAPARIN 30MG/0.3ML SYR SUBCUT SCH ×2 (09:17→21:26)
[2021-02-06] MEDS: FAMOTIDINE 20MG TABLET PO SCH ×2 (09:17→21:26)
[2021-02-06] MEDS: ASPIRIN 81MG EC TABLET PO SCH (09:17)
[2021-02-06] MEDS: CLOPIDOGREL 75MG TABLET PO SCH (09:17)
[2021-02-06] MEDS: INSULIN GLARGINE UD 100 UNITS/ML SYR SUBCUT SCH ×2 (10:44→21:38)
[2021-02-06] MEDS: LATUDA (LURASIDONE) 80MG TABLET PO SCH (17:23)
[2021-02-06 20:00] VITALS: BP 115/66
[2021-02-06] MEDS: ATORVASTATIN CALCIUM 40MG TABLET PO SCH (21:26)
[2021-02-07] MEDS: BLOOD SUGAR DIAGNOSTIC STRIP TEST SCH ×4 (06:01→21:46)
[2021-02-07] MEDS: INSULIN LISPRO 100 UNITS/ML SUBCUT SCH ×4 (06:25→21:54)
[2021-02-07 08:41] VITALS: BP 118/74
[2021-02-07] MEDS: DULOXETINE HCL 60MG DR CAPSULE PO SCH (09:22)
[2021-02-07] MEDS: ENOXAPARIN 30MG/0.3ML SYR SUBCUT SCH ×2 (09:22→21:48)
[2021-02-07] MEDS: CLOPIDOGREL 75MG TABLET PO SCH (09:22)
[2021-02-07] MEDS: FERROUS SULFATE 325MG TABLET PO SCH ×3 (09:22→17:03)
[2021-02-07] MEDS: ASCORBIC ACID 500 MG TABLET PO SCH (09:23)
[2021-02-07] MEDS: FAMOTIDINE 20MG TABLET PO SCH ×2 (09:23→21:48)
[2021-02-07] MEDS: BRIVIACT (BRIVARACETAM) 50MG TABLET PO SCH ×2 (09:23→17:03)
[2021-02-07] MEDS: ASPIRIN 81MG EC TABLET PO SCH (09:23)
[2021-02-07] MEDS: INSULIN GLARGINE UD 100 UNITS/ML SYR SUBCUT SCH ×2 (10:42→21:55)
[2021-02-07] MEDS: LATUDA (LURASIDONE) 80MG TABLET PO SCH (17:03)
[2021-02-07 20:00] VITALS: BP 119/66
[2021-02-07] MEDS: ATORVASTATIN CALCIUM 40MG TABLET PO SCH (21:47)
[2021-02-08] MEDS: INSULIN LISPRO 100 UNITS/ML SUBCUT SCH ×4 (05:26→22:21)
[2021-02-08] MEDS: BLOOD SUGAR DIAGNOSTIC STRIP TEST SCH ×4 (05:27→21:39)
[2021-02-08 08:00] VITALS: BP 137/86
[2021-02-08] MEDS: CLOPIDOGREL 75MG TABLET PO SCH (08:40)
[2021-02-08] MEDS: ASCORBIC ACID 500 MG TABLET PO SCH (08:40)
[2021-02-08] MEDS: ASPIRIN 81MG EC TABLET PO SCH (08:40)
[2021-02-08] MEDS: FERROUS SULFATE 325MG TABLET PO SCH ×3 (08:40→16:53)
[2021-02-08] MEDS: DULOXETINE HCL 60MG DR CAPSULE PO SCH (08:40)
[2021-02-08] MEDS: FAMOTIDINE 20MG TABLET PO SCH ×2 (08:40→22:11)
[2021-02-08] MEDS: ENOXAPARIN 30MG/0.3ML SYR SUBCUT SCH ×2 (08:41→22:11)
[2021-02-08] MEDS: BRIVIACT (BRIVARACETAM) 50MG TABLET PO SCH ×2 (08:41→16:59)
[2021-02-08] MEDS: INSULIN GLARGINE UD 100 UNITS/ML SYR SUBCUT SCH ×2 (10:53→22:22)
[2021-02-08] MEDS: LATUDA (LURASIDONE) 80MG TABLET PO SCH (16:59)
[2021-02-08 20:00] VITALS: BP 106/61
[2021-02-08] MEDS: ATORVASTATIN CALCIUM 40MG TABLET PO SCH (22:11)
[2021-02-09] MEDS: BLOOD SUGAR DIAGNOSTIC STRIP TEST SCH ×4 (06:27→21:29)
[2021-02-09] MEDS: INSULIN LISPRO 100 UNITS/ML SUBCUT SCH ×4 (06:28→20:56)
[2021-02-09 07:53] VITALS: BP 138/72
[2021-02-09] MEDS: BRIVIACT (BRIVARACETAM) 50MG TABLET PO SCH ×2 (09:00→16:34)
[2021-02-09] MEDS: CLOPIDOGREL 75MG TABLET PO SCH (09:00)
[2021-02-09] MEDS: FERROUS SULFATE 325MG TABLET PO SCH ×3 (09:00→16:34)
[2021-02-09] MEDS: FAMOTIDINE 20MG TABLET PO SCH ×2 (09:00→20:49)
[2021-02-09] MEDS: DULOXETINE HCL 60MG DR CAPSULE PO SCH (09:00)
[2021-02-09] MEDS: ENOXAPARIN 30MG/0.3ML SYR SUBCUT SCH ×2 (09:00→20:50)
[2021-02-09] MEDS: ASCORBIC ACID 500 MG TABLET PO SCH (09:00)
[2021-02-09] MEDS: ASPIRIN 81MG EC TABLET PO SCH (09:00)
[2021-02-09] MEDS: INSULIN GLARGINE UD 100 UNITS/ML SYR SUBCUT SCH ×2 (10:14→21:36)
[2021-02-09] MEDS: LATUDA (LURASIDONE) 80MG TABLET PO SCH (16:34)
[2021-02-09 20:00] VITALS: BP 104/58
[2021-02-09] MEDS: ATORVASTATIN CALCIUM 40MG TABLET PO SCH (20:49)
[2021-02-10] MEDS: INSULIN LISPRO 100 UNITS/ML SUBCUT SCH ×4 (06:45→21:09)
[2021-02-10] MEDS: BLOOD SUGAR DIAGNOSTIC STRIP TEST SCH ×4 (06:45→21:02)
[2021-02-10 08:26] VITALS: BP 124/74
[2021-02-10] MEDS: FERROUS SULFATE 325MG TABLET PO SCH ×3 (09:30→17:29)
[2021-02-10] MEDS: DULOXETINE HCL 60MG DR CAPSULE PO SCH (09:30)
[2021-02-10] MEDS: ASCORBIC ACID 500 MG TABLET PO SCH (09:30)
[2021-02-10] MEDS: CLOPIDOGREL 75MG TABLET PO SCH (09:30)
[2021-02-10] MEDS: ASPIRIN 81MG EC TABLET PO SCH (09:31)
[2021-02-10] MEDS: FAMOTIDINE 20MG TABLET PO SCH ×2 (09:31→21:01)
[2021-02-10] MEDS: ENOXAPARIN 30MG/0.3ML SYR SUBCUT SCH ×2 (09:32→21:01)
[2021-02-10] MEDS: BRIVIACT (BRIVARACETAM) 50MG TABLET PO SCH ×2 (09:33→17:30)
[2021-02-10] MEDS: INSULIN GLARGINE UD 100 UNITS/ML SYR SUBCUT SCH ×2 (09:44→21:09)
[2021-02-10] MEDS: LATUDA (LURASIDONE) 80MG TABLET PO SCH (17:30)
[2021-02-10 20:00] VITALS: BP 124/72
[2021-02-10] MEDS: ATORVASTATIN CALCIUM 40MG TABLET PO SCH (21:01)
[2021-02-11] MEDS: INSULIN LISPRO 100 UNITS/ML SUBCUT SCH ×4 (06:49→21:00)
[2021-02-11] MEDS: BLOOD SUGAR DIAGNOSTIC STRIP TEST SCH ×4 (06:49→21:13)
[2021-02-11 07:48] VITALS: BP 136/88
[2021-02-11] MEDS: ASPIRIN 81MG EC TABLET PO SCH (09:29)
[2021-02-11] MEDS: DULOXETINE HCL 60MG DR CAPSULE PO SCH (09:29)
[2021-02-11] MEDS: FERROUS SULFATE 325MG TABLET PO SCH ×3 (09:29→16:53)
[2021-02-11] MEDS: CLOPIDOGREL 75MG TABLET PO SCH (09:29)
[2021-02-11] MEDS: ASCORBIC ACID 500 MG TABLET PO SCH (09:29)
[2021-02-11] MEDS: FAMOTIDINE 20MG TABLET PO SCH ×2 (09:30→21:13)
[2021-02-11] MEDS: ENOXAPARIN 30MG/0.3ML SYR SUBCUT SCH ×2 (09:30→21:13)
[2021-02-11] MEDS: BRIVIACT (BRIVARACETAM) 50MG TABLET PO SCH ×2 (09:30→16:53)
[2021-02-11] MEDS: INSULIN GLARGINE UD 100 UNITS/ML SYR SUBCUT SCH ×2 (09:40→21:18)
[2021-02-11 15:10] LABS: 25-HYDROXY VITAMIN D3 45 ng/mL (.)
[2021-02-11] MEDS: LATUDA (LURASIDONE) 80MG TABLET PO SCH (16:53)
[2021-02-11] MEDS ORDERED: ERGOCALCIFEROL 50000UNITS CAPSULE PO SCH (18:00)
[2021-02-11 20:00] VITALS: BP 124/68
[2021-02-11] MEDS: ATORVASTATIN CALCIUM 40MG TABLET PO SCH (21:12)
[2021-02-12] MEDS: BLOOD SUGAR DIAGNOSTIC STRIP TEST SCH ×4 (06:47→21:00)
[2021-02-12] MEDS: INSULIN LISPRO 100 UNITS/ML SUBCUT SCH ×4 (06:57→22:34)
[2021-02-12 07:43] VITALS: BP_SYST 107; BP_SYST 137; BP_DIAS 57; BP_DIAS 80
[2021-02-12 08:01] LABS: BASOPHILS % 0.6 % (0.0-2.0); EOSINOPHILS % 2.2 % (0.0-5.0); HEMATOCRIT. 39.9 % (36.0-48.0); LYMPHOCYTES % 33.8 % (20.0-50.0); MEAN PLATELET VOLUME 9.4 fl (7.4-10.4); MONOCYTES % 9.5 % (2.0-8.0); NEUTROPHILS % 53.9 % (40.0-76.0); PLATELET 257 x1000/uL (130-400); RED BLOOD CELL COUNT 4.99 mill/uL (4.2-5.4); RED CELL DISTRIBUTION WIDTH 14.4 % (11.6-14.6)
[2021-02-12 08:04] LABS: CHLORIDE 107 mEq/L (98-107)
[2021-02-12] MEDS: ASCORBIC ACID 500 MG TABLET PO SCH (08:09)
[2021-02-12] MEDS: BRIVIACT (BRIVARACETAM) 50MG TABLET PO SCH ×2 (08:10→16:13)
[2021-02-12] MEDS: FERROUS SULFATE 325MG TABLET PO SCH ×3 (08:10→16:12)
[2021-02-12] MEDS: DULOXETINE HCL 60MG DR CAPSULE PO SCH (08:10)
[2021-02-12] MEDS: FAMOTIDINE 20MG TABLET PO SCH ×2 (08:10→22:26)
[2021-02-12] MEDS: ASPIRIN 81MG EC TABLET PO SCH (08:10)
[2021-02-12] MEDS: ENOXAPARIN 30MG/0.3ML SYR SUBCUT SCH ×2 (08:10→22:25)
[2021-02-12] MEDS: CLOPIDOGREL 75MG TABLET PO SCH (08:10)
[2021-02-12] MEDS: INSULIN GLARGINE UD 100 UNITS/ML SYR SUBCUT SCH ×2 (11:03→22:37)
[2021-02-12] MEDS ORDERED: FERR325T23 PO (13:00)
[2021-02-12] MEDS ORDERED: CLOP75TA15 PO (13:00)
[2021-02-12] MEDS ORDERED: LANTUSUD SUBCUT (13:00)
[2021-02-12] MEDS ORDERED: LIP40 PO (13:00)
[2021-02-12] MEDS ORDERED: CHOL400D7 MT (13:00)
[2021-02-12] MEDS: LATUDA (LURASIDONE) 80MG TABLET PO SCH (16:12)
[2021-02-12 20:00] VITALS: BP 108/55
[2021-02-12] MEDS: ATORVASTATIN CALCIUM 40MG TABLET PO SCH (22:25)
[2021-02-13] MEDS: BLOOD SUGAR DIAGNOSTIC STRIP TEST SCH ×2 (06:29→12:11)
[2021-02-13] MEDS: INSULIN LISPRO 100 UNITS/ML SUBCUT SCH ×2 (06:54→13:00)
[2021-02-13 08:27] VITALS: BP 127/64
[2021-02-13] MEDS: ASPIRIN 81MG EC TABLET PO SCH (09:24)
[2021-02-13] MEDS: FERROUS SULFATE 325MG TABLET PO SCH (09:24)
[2021-02-13] MEDS: FAMOTIDINE 20MG TABLET PO SCH (09:24)
[2021-02-13] MEDS: DULOXETINE HCL 60MG DR CAPSULE PO SCH (09:25)
[2021-02-13] MEDS: ASCORBIC ACID 500 MG TABLET PO SCH (09:26)
[2021-02-13] MEDS: CLOPIDOGREL 75MG TABLET PO SCH (09:27)
[2021-02-13] MEDS: BRIVIACT (BRIVARACETAM) 50MG TABLET PO SCH (09:28)
[2021-02-13] MEDS: ENOXAPARIN 30MG/0.3ML SYR SUBCUT SCH (09:30)
[2021-02-13] MEDS: INSULIN GLARGINE UD 100 UNITS/ML SYR SUBCUT SCH (11:20)
[2021-02-13 11:57] VITALS: BP 122/97
== END 2021-02-13 13:00 | disposition home health service (06) | DRG 58 ==
PROVIDERS: ADMIT Physical Medicine & Rehabilitation Spinal Cord Injury Medicine; ATTEND Internal Medicine
DX: I69.354 Hemiplegia and hemiparesis following cerebral infarction affecting left non-dominant side (principal); E11.65 Type 2 diabetes mellitus with hyperglycemia; R47.01 Aphasia; G40.909 Epilepsy, unspecified, not intractable, without status epilepticus; R47.1 Dysarthria and anarthria; I10 Essential (primary) hypertension; E78.00 Pure hypercholesterolemia, unspecified; R53.81 Other malaise; D50.9 Iron deficiency anemia, unspecified; E66.9 Obesity, unspecified; E78.1 Pure hyperglyceridemia; E78.5 Hyperlipidemia, unspecified; E83.39 Other disorders of phosphorus metabolism; E83.42 Hypomagnesemia; E87.6 Hypokalemia; F20.9 Schizophrenia, unspecified; F31.9 Bipolar disorder, unspecified; R29.810 Facial weakness; Z79.4 Long term (current) use of insulin; Z82.49 Family history of ischemic heart disease and other diseases of the circulatory system; Z86.61 Personal history of infections of the central nervous system; Z86.711 Personal history of pulmonary embolism; Z90.710 Acquired absence of both cervix and uterus; R47.81 Slurred speech; Z79.899 Other long term (current) drug therapy; Z79.82 Long term (current) use of aspirin
CPT/HCPCS: 36415; 80048; 80053; 82306; 82728; 82962; 83540; 83550; 84134; 85025; 92523; 92610; 93970; 97110; 97112; 97116; 97162; 97166; 97530; 97535; J1650; J1815

== ENCOUNTER 2021-06-22 03:22 | Emergency (ER) | payer MEDICAID, OTHER ==
[~2021-06-22] VITALS: Ht 167.6 cm; Wt 80.0 kg
[~2021-06-22 03:22] MED LIST changes: -APIX5TAB PO; -ASPI-1497 MT; -ATOR20TA MT; -ATOR20TA65 PO; -CHLO25TA2 PO; +CHOL400D7 MT; +CLOP75TA15 PO; -CRAN500T2 MT; +CRAN500T3 MT; -DULO60CA64 PO; -FAMO20TA8 MT; +FERR325T23 PO; -HYDR25TA MT; +LANTUSUD SUBCUT; +LIP40 PO; -LURA120T MT; -METH-612 MT; +METH-774 MT; -OMEG-119 MT
[2021-06-22 07:11] LABS: BASOPHILS % 0.7 % (0.0-2.0); EOSINOPHILS % 3.2 % (0.0-5.0); HEMATOCRIT. 34.5 % (36.0-48.0); HEMOGLOBIN. 11.3 g/dL (12.0-16.0); LYMPHOCYTES % 34.8 % (20.0-50.0); MEAN CORPUSCULAR HEMOGLOBIN 26.1 pg (28.0-32.0); MEAN CORPUSCULAR VOLUME 79.4 fL (81.0-99.0); MEAN PLATELET VOLUME 8.7 fl (7.4-10.4); MONOCYTES % 8.2 % (2.0-8.0); NEUTROPHILS % 53.1 % (40.0-76.0); PLATELET 296 x1000/uL (130-400); RED BLOOD CELL COUNT 4.34 mill/uL (4.2-5.4); RED CELL DISTRIBUTION WIDTH 18.1 % (11.6-14.6)
[2021-06-22 07:17] LABS: CHLORIDE 104 mEq/L (98-107)
[2021-06-22 14:17] VITALS: BP 136/88
== END 2021-06-22 14:40 | disposition home or self-care (01) ==
LOC: ER 03:22
DX: R07.89 Other chest pain (principal); R51.9 Headache, unspecified; I10 Essential (primary) hypertension; E11.9 Type 2 diabetes mellitus without complications; Z88.1 Allergy status to other antibiotic agents; Z88.8 Allergy status to other drugs, medicaments and biological substances; Z79.899 Other long term (current) drug therapy; Z86.73 Personal history of transient ischemic attack (TIA), and cerebral infarction without residual deficits; Z86.59 Personal history of other mental and behavioral disorders
CPT/HCPCS: 36415; 71045; 80053; 83880; 84484; 85025; 85379; 93005; 99285

== ENCOUNTER 2023-08-15 18:33 | Emergency (ER) | payer MEDICAID, OTHER ==
[~2023-08-15] VITALS: Ht 162.6 cm; Wt 73.0 kg
[~2023-08-15 18:33] MED LIST changes: -CRAN500T3 MT; +CRAN500T4 MT; -DULO60CA44 MT; +DULO60CA45 MT; -LURA40TA PO; +LURA40TA2 PO
[2023-08-15 18:39] VITALS: TEMP 98.4; O2SAT 100
[2023-08-15 19:23] LABS: BASOPHILS % 0.5 % (0.0-2.0); EOSINOPHILS % 2.2 % (0.0-5.0); HEMATOCRIT. 40.8 % (36.0-48.0); HEMOGLOBIN. 13.4 g/dL (12.0-16.0); MEAN CORPUSCULAR HEMOGLOBIN 26.3 pg (28.0-32.0); MEAN CORPUSCULAR HGB CONC 32.7 g/dL (31.0-37.0); MEAN CORPUSCULAR VOLUME 80.2 fL (81.0-99.0); MEAN PLATELET VOLUME 9.4 fl (7.4-10.4); MONOCYTES % 8.7 % (2.0-8.0); NEUTROPHILS % 57.6 % (40.0-76.0); PLATELET 253 x1000/uL (130-400); RED BLOOD CELL COUNT 5.09 mill/uL (4.2-5.4); RED CELL DISTRIBUTION WIDTH 15.5 % (11.6-14.6); WHITE BLOOD COUNT 7.7 x1000/uL (4.5-11.0)
[2023-08-15 19:28] LABS: ALANINE AMINOTRANSFERASE 18 IU/L (10-49); ALBUMIN 4.7 g/dL (3.2-4.8); ASPARTATE AMINOTRANSFERASE 23 IU/L (<34); BILIRUBIN TOTAL 0.4 mg/dL (0.1-1.0); CALCIUM 9.8 mg/dL (8.7-10.4); CARBON DIOXIDE 28 mEq/L (21-32); CHLORIDE 102 mEq/L (98-107); CREATININE 0.8 mg/dL (0.6-1.0); GLUCOSE 66 mg/dL (70-105); POTASSIUM 3.7 mEq/L (3.5-5.1); SODIUM 138 mEq/L (136-145); UREA NITROGEN BLOOD 13 mg/dL (9-23)
[2023-08-15 19:39] LABS: TROPONIN I HIGH SENSITIVITY < 4 ng/L (3.0-34)
[2023-08-15] MEDS: ASPIRIN 81MG TABLET PO ONE (20:09)
[2023-08-15 21:15] LABS: CLARITY URINE CLEAR (CLEAR); COLOR URINE YELLOW (YELLOW); GLUCOSE URINE NEGATIVE (NEGATIVE); KETONES URINE NEGATIVE (NEGATIVE); LEUKOCYTE ESTERASE URINE NEGATIVE (NEGATIVE); NITRITE URINE NEGATIVE (NEGATIVE); OCCULT BLOOD URINE NEGATIVE (NEGATIVE); PH URINE 7.5 (4.5-8.0); PROTEIN URINE NEGATIVE (NEGATIVE); SPECIFIC GRAVITY URINE 1.005 (1.005-1.030); UROBILINOGEN URINE 0.2 E.U./dL (0.2-1.0)
[2023-08-15 21:36] LABS: TROPONIN I HIGH SENSITIVITY < 4 ng/L (3.0-34)
[2023-08-15 22:10] VITALS: BP 145/88; PULSE 87; RESP 19
== END 2023-08-15 22:20 | disposition home or self-care (01) ==
LOC: ER 18:33
DX: R07.9 Chest pain, unspecified (principal); E11.9 Type 2 diabetes mellitus without complications; I10 Essential (primary) hypertension; F19.90 Other psychoactive substance use, unspecified, uncomplicated; E78.00 Pure hypercholesterolemia, unspecified; Z86.73 Personal history of transient ischemic attack (TIA), and cerebral infarction without residual deficits; Z88.8 Allergy status to other drugs, medicaments and biological substances
CPT/HCPCS: 80053; 81003; 82962; 83880; 85025; 84484; 36415; 71045; 93005; 99285; Z7610

== ENCOUNTER 2024-03-11 13:58 | Inpatient (IN) | payer MEDICAID, OTHER ==
[~2024-03-11] VITALS: Ht 162.6 cm; Wt 95.3 kg
[2024-03-11] MEDS: INSULIN LISPRO 100 UNITS/ML SUBCUT SCH (06:00)
[2024-03-11 15:19] LABS: BASOPHILS % 0.3 % (0.0-2.0); EOSINOPHILS % 1.3 % (0.0-5.0); HEMATOCRIT. 35.9 % (36.0-48.0); HEMOGLOBIN. 11.2 g/dL (12.0-16.0); LYMPHOCYTES % 26.7 % (20.0-50.0); MEAN CORPUSCULAR HEMOGLOBIN 25.6 pg (28.0-32.0); MEAN CORPUSCULAR HGB CONC 31.1 g/dL (31.0-37.0); MEAN CORPUSCULAR VOLUME 82.1 fL (81.0-99.0); MEAN PLATELET VOLUME 10.8 fl (7.4-10.4); MONOCYTES % 9.5 % (2.0-8.0); NEUTROPHILS % 62.2 % (40.0-76.0); PLATELET 182 x1000/uL (130-400); RED BLOOD CELL COUNT 4.37 mill/uL (4.2-5.4); RED CELL DISTRIBUTION WIDTH 16.9 % (11.6-14.6); WHITE BLOOD COUNT 4.9 x1000/uL (4.5-11.0)
[2024-03-11 15:23] LABS: CHLORIDE 91 mEq/L (98-107); POTASSIUM 4.5 mEq/L (3.5-5.1); SODIUM 125 mEq/L (136-145)
[2024-03-11 15:24] LABS: CALCIUM 9.5 mg/dL (8.7-10.4); CARBON DIOXIDE 25 mEq/L (21-32)
[2024-03-11 15:29] LABS: UREA NITROGEN BLOOD 12 mg/dL (9-23)
[2024-03-11 15:33] LABS: CLARITY URINE CLEAR (CLEAR); COLOR URINE YELLOW (YELLOW); GLUCOSE URINE 3+ (NEGATIVE); KETONES URINE TRACE (NEGATIVE); LEUKOCYTE ESTERASE URINE NEGATIVE (NEGATIVE); NITRITE URINE NEGATIVE (NEGATIVE); OCCULT BLOOD URINE NEGATIVE (NEGATIVE); PROTEIN URINE NEGATIVE (NEGATIVE); SPECIFIC GRAVITY URINE 1.028 (1.005-1.030); UROBILINOGEN URINE 0.2 E.U./dL (0.2-1.0)
[2024-03-11 15:36] LABS: PARTIAL THROMBOPLASTIN TIME 24.7 sec (23.4-31.0)
[2024-03-11 15:40] LABS: CREATININE 1.6 mg/dL (0.6-1.0); TROPONIN I HIGH SENSITIVITY < 4 ng/L (3.0-34)
[2024-03-11 15:47] LABS: GLUCOSE 939 mg/dL (70-105)
[2024-03-11] MEDS: SODIUM CHLORIDE 0.9% 1,000 ML IV ONE (15:52)
[2024-03-11 15:55] LABS: BACTERIA URINE NONE SEEN; RBC URINE NONE SEEN /hpf (0-2); SQUAMOUS EPITHELIAL CELL URINE RARE /lpf (RARE/1+); WBC URINE 0-2 /hpf (0-2)
[2024-03-11] MEDS: INSULIN LISPRO 100 UNITS/ML SUBCUT ONE ×2 (15:56→19:58)
[2024-03-11] MEDS: POTASSIUM CHLORIDE 20MEQ TABLET SR PO ONE (17:02)
[2024-03-11] MEDS: INSULIN REGULAR (HUMULIN R) 1000UNITS/10ML VIAL IV ONE (17:04)
[2024-03-11 17:51] LABS: BG CARBOXYHEMOGLOBIN 0.5 % (0.5-1.5); BG DEOXYHEMOGLOBIN 3.7 % (0.0-5.0); BG FRACTION INSPIRED OXYGEN 21; BG HCO3 ACT 26.9 mmol/L (21.0-28.0); BG METHEMOGLOBIN 0.3 % (0.5-1.5); BG OXYGEN SATURATION 96.3 % (94.0-98.0); BG OXYHEMOGLOBIN 95.5 % (94.0-98.0); BG PH 7.414 (7.350-7.450); BG PO2 82.8 mmHg (83.0-108.0); BG SAMPLE SITE RIGHT RADIAL; BG TOTAL HEMOGLOBIN 14.1 g/dL (12.0-16.0); BG VENT MODE ROOM AIR
[2024-03-11] MEDS: KETOROLAC 15MG/ML VIAL IV ONE (18:07)
[2024-03-11] MEDS ORDERED: ACETAMINOPHEN 325MG TABLET PO PRN (18:30)
[2024-03-11] MEDS ORDERED: CLONIDINE 0.1MG TABLET PO PRN (18:30)
[2024-03-11] MEDS ORDERED: IPRATROPIUM/ALBUTEROL 0.5-3(2.5)MG/3ML NEB HHN PRN (18:30)
[2024-03-11] MEDS ORDERED: DEXTROSE 50% WATER 50ML SYRINGE IV PRN (18:30)
[2024-03-11] MEDS: METOCLOPRAMIDE HCL 10MG/2ML VIAL IV ONE (19:29)
[2024-03-11] MEDS: SODIUM CHLORIDE 0.9% 1,000 ML IV SCH (19:55)
[2024-03-11] MEDS: LEVETIRACETAM 500MG/5ML CUP PO SCH (21:06)
[2024-03-11] MEDS: BLOOD SUGAR DIAGNOSTIC STRIP TEST SCH (21:41)
[2024-03-11 22:00] VITALS: BP 120/82; PULSE 69; RESP 20; TEMP 36.114; O2SAT 100
[2024-03-11] MEDS: INSULIN GLARGINE 100 UNITS/ML SUBCUT SCH (22:00)
[2024-03-11 23:43] VITALS: BP 120/82; PULSE 69; RESP 20; TEMP 36.14
[2024-03-12] VITALS: BP 130/81; PULSE 92; RESP 20; TEMP 36.3918; O2SAT 100
[2024-03-12] MEDS: DIPHENHYDRAMINE 50MG/ML VIAL IV PRN (00:19)
[2024-03-12] MEDS: ONDANSETRON HCL 4MG/2ML INJ IV PRN (02:29)
[2024-03-12 04:00] VITALS: BP 148/99; PULSE 86; RESP 20; TEMP 36.3918
[2024-03-12 08:00] VITALS: BP 132/82; PULSE 85; RESP 18; TEMP 36.6696; O2SAT 100
[2024-03-12] MEDS ORDERED: ZOLPIDEM TARTRATE 5MG TABLET PO PRN (09:30)
[2024-03-12] MEDS ORDERED: NON FORMULARY MED XX SCH ×2 (09:30)
[2024-03-12 11:03] LABS: CHLORIDE 100 mEq/L (98-107); POTASSIUM 4.2 mEq/L (3.5-5.1); SODIUM 134 mEq/L (136-145)
[2024-03-12 11:04] LABS: CALCIUM 8.9 mg/dL (8.7-10.4); CARBON DIOXIDE 28 mEq/L (21-32)
[2024-03-12 11:09] LABS: CREATININE 0.9 mg/dL (0.6-1.0); GLUCOSE 307 mg/dL (70-105); TRIGLYCERIDE 162 mg/dL (0-150); UREA NITROGEN BLOOD 9 mg/dL (9-23)
[2024-03-12 11:10] LABS: LDL CHOLESTEROL 220 mg/dL (5-100)
[2024-03-12 11:11] LABS: CHOLESTEROL 260 mg/dL (<200); HDL CHOLESTEROL 41 mg/dL (>65)
[2024-03-12 11:14] LABS: THYROID STIMULATING HORMONE 0.97 uIU/mL (0.55-4.78)
[2024-03-12] MEDS: CLOPIDOGREL 75MG TABLET PO SCH (11:54)
[2024-03-12] MEDS: FAMOTIDINE 20MG TABLET PO SCH (11:54)
[2024-03-12] MEDS: DOCUSATE SODIUM SUGAR FREE 100MG/10ML UDC PO SCH (11:54)
[2024-03-12 12:00] VITALS: BP 142/75; PULSE 89; RESP 19; TEMP 36.61404; O2SAT 99
[2024-03-12] MEDS ORDERED: SODIUM CHLORIDE 0.9% 1,000 ML IV SCH (12:00)
[2024-03-12 12:08] LABS: TROPONIN I HIGH SENSITIVITY 117 ng/L (3.0-34)
[2024-03-12] MEDS: FERROUS SULFATE 325MG TABLET PO SCH (13:16)
[2024-03-12] MEDS: METHOCARBAMOL 750MG TABLET PO SCH (13:16)
[2024-03-12] MEDS: DULOXETINE HCL 60MG DR CAPSULE PO SCH (13:16)
[2024-03-12] MEDS: INSULIN LISPRO 100 UNITS/ML SUBCUT SCH (13:23)
[2024-03-12 16:00] VITALS: BP 138/70; PULSE 97; RESP 18; TEMP 36.55848; O2SAT 99
[2024-03-12 20:00] VITALS: BP 117/87; PULSE 99; RESP 16; TEMP 37.2252; O2SAT 100
[2024-03-12] MEDS: ATORVASTATIN CALCIUM 40MG TABLET PO SCH (20:25)
[2024-03-12] MEDS: MELATONIN 3MG TABLET PO SCH (20:25)
[2024-03-12] MEDS: TEMAZEPAM 15MG CAPSULE PO SCH (20:26)
[2024-03-13] VITALS: BP 129/85; PULSE 86; RESP 16; TEMP 36.9474; O2SAT 97
[2024-03-13 04:00] VITALS: BP 139/86; PULSE 88; RESP 16; TEMP 36.28068; O2SAT 96
[2024-03-13 08:00] VITALS: BP 135/93; PULSE 97; RESP 18; TEMP 36.55848; O2SAT 96
[2024-03-13 12:00] VITALS: BP 130/88; PULSE 88; RESP 16; TEMP 36.44736; O2SAT 98
[2024-03-13 16:00] VITALS: BP 138/94; PULSE 100; RESP 18; TEMP 36.61404; O2SAT 100
[2024-03-13 20:00] VITALS: BP 125/71; PULSE 97; RESP 16; TEMP 36.50292; O2SAT 97
[2024-03-14] VITALS: BP 119/75; PULSE 89; RESP 16; TEMP 36.33624; O2SAT 95
[2024-03-14 04:00] VITALS: BP 122/85; PULSE 101; RESP 15; TEMP 36.3918; O2SAT 95
[2024-03-14 07:01] LABS: BASOPHILS % 0.5 % (0.0-2.0); HEMATOCRIT. 39.4 % (36.0-48.0); HEMOGLOBIN. 12.7 g/dL (12.0-16.0); LYMPHOCYTES % 32.8 % (20.0-50.0); MEAN CORPUSCULAR HEMOGLOBIN 25.9 pg (28.0-32.0); MEAN CORPUSCULAR HGB CONC 32.3 g/dL (31.0-37.0); MEAN CORPUSCULAR VOLUME 80.1 fL (81.0-99.0); MEAN PLATELET VOLUME 10.9 fl (7.4-10.4); MONOCYTES % 8.9 % (2.0-8.0); NEUTROPHILS % 55.8 % (40.0-76.0); PLATELET 198 x1000/uL (130-400); RED BLOOD CELL COUNT 4.92 mill/uL (4.2-5.4); RED CELL DISTRIBUTION WIDTH 16.9 % (11.6-14.6); WHITE BLOOD COUNT 5.3 x1000/uL (4.5-11.0)
[2024-03-14 07:12] LABS: CALCIUM 9.2 mg/dL (8.7-10.4); CHLORIDE 102 mEq/L (98-107); POTASSIUM 3.7 mEq/L (3.5-5.1); SODIUM 138 mEq/L (136-145)
[2024-03-14 07:13] LABS: CARBON DIOXIDE 28 mEq/L (21-32)
[2024-03-14 07:18] LABS: CREATININE 0.8 mg/dL (0.6-1.0); GLUCOSE 126 mg/dL (70-105); UREA NITROGEN BLOOD 13 mg/dL (9-23)
[2024-03-14 08:00] VITALS: BP 136/90; PULSE 109; RESP 18; TEMP 36.3918; O2SAT 98
[2024-03-14] MEDS ORDERED: VERAPAMIL HCL 2.5 MG/1 ML 2ML VIAL IV ONE (10:40)
[2024-03-14] MEDS ORDERED: IODIXANOL 320MG/ML 100 ML BOTTLE IV ONE (10:40)
[2024-03-14] MEDS ORDERED: DIPHENHYDRAMINE 50MG/ML VIAL ONE (10:40)
[2024-03-14] MEDS ORDERED: LIDOCAINE HCL 1% 20ML VIAL ONE (10:40)
[2024-03-14] MEDS ORDERED: HEPARIN 1000 UNITS/ML 10ML ONE (10:40)
[2024-03-14] MEDS ORDERED: FENTANYL CITRATE/PF 50MCG/ML 2ML VIAL ONE (11:06)
[2024-03-14] MEDS ORDERED: MIDAZOLAM HCL 2 MG/2 ML VIAL ONE (11:06)
[2024-03-14] MEDS ORDERED: ATROPINE SULFATE 1MG/10ML SYR IV PRN (12:00)
[2024-03-14] MEDS ORDERED: ACETAMINOPHEN 325MG TABLET PO PRN (12:00)
[2024-03-14 15:00] VITALS: BP 121/84; PULSE 113; RESP 18; TEMP 36.3918; O2SAT 97
[2024-03-14 20:00] VITALS: BP 125/72; PULSE 110; RESP 18; TEMP 36.61404; O2SAT 98
[2024-03-15 00:29] VITALS: BP 128/70; PULSE 112; RESP 18; TEMP 36.3918; O2SAT 98
[2024-03-15 04:00] VITALS: BP 139/83; PULSE 99; RESP 18; TEMP 36.3918; O2SAT 98
[2024-03-15 06:46] LABS: BASOPHILS % 0.4 % (0.0-2.0); EOSINOPHILS % 0.5 % (0.0-5.0); HEMATOCRIT. 39.2 % (36.0-48.0); HEMOGLOBIN. 12.5 g/dL (12.0-16.0); MEAN CORPUSCULAR HEMOGLOBIN 25.9 pg (28.0-32.0); MEAN CORPUSCULAR VOLUME 80.9 fL (81.0-99.0); MEAN PLATELET VOLUME 10.3 fl (7.4-10.4); MONOCYTES % 9.7 % (2.0-8.0); NEUTROPHILS % 67.4 % (40.0-76.0); PLATELET 186 x1000/uL (130-400); RED BLOOD CELL COUNT 4.85 mill/uL (4.2-5.4); RED CELL DISTRIBUTION WIDTH 17.4 % (11.6-14.6); WHITE BLOOD COUNT 6.1 x1000/uL (4.5-11.0)
[2024-03-15 07:03] LABS: CARBON DIOXIDE 26 mEq/L (21-32); CHLORIDE 104 mEq/L (98-107); SODIUM 138 mEq/L (136-145)
[2024-03-15 07:04] LABS: CALCIUM 9.4 mg/dL (8.7-10.4)
[2024-03-15 07:09] LABS: CREATININE 0.8 mg/dL (0.6-1.0); GLUCOSE 91 mg/dL (70-105); UREA NITROGEN BLOOD 12 mg/dL (9-23)
[2024-03-15 08:00] VITALS: BP 137/72; PULSE 100; RESP 20; TEMP 36.22512; O2SAT 98
[2024-03-15 11:47] VITALS: BP 114/73; PULSE 100; TEMP 97.4; O2SAT 98
[2024-03-15 12:00] VITALS: BP 114/73; PULSE 119; RESP 20; TEMP 36.33624; O2SAT 98
[2024-03-30] MEDS ORDERED: RISP3TAB76 PO (21:33)
== END 2024-03-15 13:35 | disposition home or self-care (01) | DRG 192 ==
LOC: ER 14:11 → 7EST 16:31 → EDBEDREQ 16:38 → ER 21:44
PROVIDERS: ADMIT Internal Medicine; ATTEND Internal Medicine
PROC: 4A023N7 Measurement of Cardiac Sampling and Pressure, Left Heart, Percutaneous Approach (ICD-10-PCS; principal; 2024-03-14)
PROC: B2111ZZ Fluoroscopy of Multiple Coronary Arteries using Low Osmolar Contrast (ICD-10-PCS; 2024-03-14)
DX: M94.0 Chondrocostal junction syndrome [Tietze] (principal); E88.89 Other specified metabolic disorders; N17.9 Acute kidney failure, unspecified; I11.0 Hypertensive heart disease with heart failure; I50.40 Unspecified combined systolic (congestive) and diastolic (congestive) heart failure; G47.00 Insomnia, unspecified; E11.65 Type 2 diabetes mellitus with hyperglycemia; E78.5 Hyperlipidemia, unspecified; F20.9 Schizophrenia, unspecified; E66.9 Obesity, unspecified; F32.A Depression, unspecified; I69.354 Hemiplegia and hemiparesis following cerebral infarction affecting left non-dominant side; Z79.01 Long term (current) use of anticoagulants; Z79.899 Other long term (current) drug therapy; Z88.1 Allergy status to other antibiotic agents; Z79.4 Long term (current) use of insulin; Z88.8 Allergy status to other drugs, medicaments and biological substances; Z83.3 Family history of diabetes mellitus; Z82.49 Family history of ischemic heart disease and other diseases of the circulatory system; Z90.710 Acquired absence of both cervix and uterus; Z86.711 Personal history of pulmonary embolism; Z68.36 Body mass index [BMI] 36.0-36.9, adult
CPT/HCPCS: 36415; 36600; 71045; 80048; 80061; 81003; 82010; 82375; 82805; 82962; 83036; 83880; 83930; 84443; 84484; 85025; 93005; 93306; 93458; 93970; 97162; 99291; C1769; C1887; C1893; J1200; J1644; J1815; J1885; J2250; J2405; J2765; J3010; J3490; J7030; Q9967

== ENCOUNTER 2024-03-24 07:13 | Emergency (ER) | payer OTHER ==
[~2024-03-24] VITALS: Ht 167.6 cm; Wt 80.0 kg
[~2024-03-24 07:13] MED LIST changes: -TRAM50TA3 MT
[2024-03-24 07:16] VITALS: O2SAT 100
[2024-03-24 07:55] LABS: BASOPHILS % 0.6 % (0.0-2.0); EOSINOPHILS % 1.8 % (0.0-5.0); HEMATOCRIT. 37.1 % (36.0-48.0); HEMOGLOBIN. 11.8 g/dL (12.0-16.0); LYMPHOCYTES % 29.7 % (20.0-50.0); MEAN CORPUSCULAR HEMOGLOBIN 25.8 pg (28.0-32.0); MEAN CORPUSCULAR HGB CONC 31.7 g/dL (31.0-37.0); MEAN CORPUSCULAR VOLUME 81.3 fL (81.0-99.0); MEAN PLATELET VOLUME 10.4 fl (7.4-10.4); MONOCYTES % 10.6 % (2.0-8.0); NEUTROPHILS % 57.3 % (40.0-76.0); PLATELET 223 x1000/uL (130-400); RED BLOOD CELL COUNT 4.57 mill/uL (4.2-5.4); RED CELL DISTRIBUTION WIDTH 16.3 % (11.6-14.6); WHITE BLOOD COUNT 5.6 x1000/uL (4.5-11.0)
[2024-03-24 08:03] LABS: POTASSIUM 3.8 mEq/L (3.5-5.1)
[2024-03-24 08:04] LABS: CALCIUM 9.6 mg/dL (8.7-10.4)
[2024-03-24 08:09] LABS: CREATININE 1.3 mg/dL (0.6-1.0)
[2024-03-24] MEDS: SODIUM CHLORIDE 0.9% 1,000 ML IV ONE ×2 (08:38→09:18)
[2024-03-24 08:45] LABS: CLARITY URINE CLEAR (CLEAR); COLOR URINE YELLOW (YELLOW); GLUCOSE URINE 3+ (NEGATIVE); KETONES URINE NEGATIVE (NEGATIVE); LEUKOCYTE ESTERASE URINE NEGATIVE (NEGATIVE); NITRITE URINE NEGATIVE (NEGATIVE); OCCULT BLOOD URINE NEGATIVE (NEGATIVE); PROTEIN URINE NEGATIVE (NEGATIVE); SPECIFIC GRAVITY URINE 1.024 (1.005-1.030); UROBILINOGEN URINE 0.2 E.U./dL (0.2-1.0)
[2024-03-24 09:13] LABS: SQUAMOUS EPITHELIAL CELL URINE FEW /lpf (RARE/1+)
[2024-03-24 09:14] LABS: BACTERIA URINE TRACE; RBC URINE 0-2 /hpf (0-2)
[2024-03-24 09:17] LABS: WBC URINE 0-2 /hpf (0-2)
[2024-03-24] MEDS: INSULIN REGULAR (HUMULIN R) 1000UNITS/10ML VIAL IV ONE (09:21)
[2024-03-24] MEDS: CYCLOBENZAPRINE 10MG TABLET PO ONE (10:14)
[2024-03-24 10:20] VITALS: BP 138/68; PULSE 96; RESP 21; TEMP 36.50292; O2SAT 100
== END 2024-03-24 08:32 | disposition home or self-care (01) ==
LOC: ER 07:25
DX: J06.9 Acute upper respiratory infection, unspecified (principal); E11.65 Type 2 diabetes mellitus with hyperglycemia; I10 Essential (primary) hypertension; F19.90 Other psychoactive substance use, unspecified, uncomplicated; Z86.73 Personal history of transient ischemic attack (TIA), and cerebral infarction without residual deficits; Z79.899 Other long term (current) drug therapy; Z88.6 Allergy status to analgesic agent; Z88.8 Allergy status to other drugs, medicaments and biological substances
CPT/HCPCS: 80048; 81003; 82962; 85025; 36415; 71045; 96361; 96374; 99284; J1815; J7030; Z7610 ×3

== ENCOUNTER 2025-04-21 12:35 | Emergency (ER) | payer MEDICAID ==
[~2025-04-21] VITALS: Ht 165.1 cm; Wt 80.0 kg
[~2025-04-21 12:35] MED LIST changes: -ALOG25TA2 PO; +APIX5TAB MT; -ASCO500C15 PO; +ASPI-1160 PO; +ATOR-2 PO; +BIOT10TA2 MT; +BUDE6HFA INH; +CALC-1305 PO; +CARV3.1242 MT; -CLOP75TA15 PO; -CRAN500T4 MT; +DIPH25TA23 MT; -DOCU50LI25 PO; +DULO30CA52 MT; -DULO60CA45 MT; +EMPA25TA PO; +FERR-63 PO; -FERR325T23 PO; +GLIM4TAB36 MT; +HYDR25TA MT; -LIP40 PO; +LOSA25TA26 PO; -LUTE40CA PO; +MAGN400T26 PO; -METH-774 MT; +MIRT-90 PO; +MONT-39 PO; +MONT-46 MT; +OMEP20CA14 MT; +PROT40 MT; +RISP3TAB76 PO; -TEMA15CA PO; +ZOLP5TAB18 MT; -ZOLP5TAB8 MT
[2025-04-21 12:36] VITALS: O2SAT 100
[2025-04-21] MEDS: ASPIRIN 81MG TABLET PO ONE (13:24)
[2025-04-21 13:53] LABS: BASOPHILS % 0.4 % (0.0-2.0); EOSINOPHILS % 1.8 % (0.0-5.0); HEMATOCRIT. 35.8 % (36.0-48.0); HEMOGLOBIN. 11.4 g/dL (12.0-16.0); LYMPHOCYTES % 41.3 % (20.0-50.0); MEAN PLATELET VOLUME 10.1 fl (7.4-10.4); MONOCYTES % 7.9 % (2.0-8.0); NEUTROPHILS % 48.6 % (40.0-76.0); PLATELET 188 x1000/uL (130-400); RED BLOOD CELL COUNT 4.46 mill/uL (4.2-5.4); RED CELL DISTRIBUTION WIDTH 18.6 % (11.6-14.6)
[2025-04-21 14:07] LABS: CREATININE 0.7 mg/dL (0.6-1.0); UREA NITROGEN BLOOD 12 mg/dL (9-23)
[2025-04-21 14:08] LABS: TROPONIN I HIGH SENSITIVITY 10 ng/L (3.0-34)
[2025-04-21 14:09] LABS: ASPARTATE AMINOTRANSFERASE 22 IU/L (<34); BILIRUBIN DIRECT 0.1 mg/dL (<=3.0); BILIRUBIN TOTAL 0.4 mg/dL (0.1-1.0)
[2025-04-21 14:10] LABS: PROTEIN TOTAL 7.3 g/dL (6.0-8.3)
[2025-04-21 16:13] LABS: TROPONIN I HIGH SENSITIVITY 11 ng/L (3.0-34)
[2025-04-21 17:24] VITALS: BP 136/76; PULSE 96; RESP 17; TEMP 35.7; O2SAT 99
[2025-04-21] MEDS ORDERED: IOHEXOL-350 100 ML BOTTLE ONE (23:06)
== END 2025-04-21 17:27 | disposition home or self-care (01) ==
LOC: ER 12:35
DX: R07.9 Chest pain, unspecified (principal); E11.9 Type 2 diabetes mellitus without complications; I10 Essential (primary) hypertension; J44.9 Chronic obstructive pulmonary disease, unspecified; Z79.899 Other long term (current) drug therapy; Z86.73 Personal history of transient ischemic attack (TIA), and cerebral infarction without residual deficits; Z88.1 Allergy status to other antibiotic agents
CPT/HCPCS: 80076; 80048; 80320; 85025; 85379; 84484; 36415; 71045; 71275; 93005; 99285; Q9967; Z7610; G0480